=== PATIENT | male | born 1995 | race Caucasian/White ===

== ENCOUNTER 2017-12-17 09:52 | Emergency (ER) | payer MEDICAID ==
--- NOTE | 2017-12-17 10:39 | ER Document Report ---
HPI - HPI Pain Level: 4 Notes: Patient is a 22-year-old male who presents with chief complaint of left thumb pain. Patient reports area of swelling to the left thumb, unknown how this happened. Denies any drainage. Denies any fevers. Past Medical History - General Information source: Patient - Social History Smoking Status: Never Smoker Frequency of alcohol use: None Drug Abuse: None Family History: Reviewed & Not Pertinent - Medical History Medical History: Negative Notes: Hearing impaired Surgical Hx: Negative Vertical Provider Document - CONSTITUTIONAL Notes: PHYSICAL EXAMINATION: GENERAL: Well-appearing, well-nourished and in no acute distress. HEAD: Atraumatic, normocephalic. EYES: Pupils equal round extraocular movements intact, conjunctiva are normal. ENT: Nares patent NECK: Normal range of motion LUNGS: No respiratory distress Musculoskeletal: Normal range of motion NEUROLOGICAL: Normal speech, normal gait. PSYCH: Normal mood, normal affect. SKIN: Warm, Dry, normal turgor, no rashes or lesions noted. Paronychya noted to left thumb. - INFECTION CONTROL TRAVEL OUTSIDE OF THE [place] IN LAST 30 DAYS: No Course - Re-evaluation Re-evalutation: Incision and drainage performed to left thumb, patient tolerated well. Moderate amount of purulent drainage obtained. See procedure note. - Vital Signs Vital signs: Temp Pulse Resp BP Pulse Ox 98.5 F 93 16 162/101 H 98 12/17/17 10:02 12/17/17 10:02 12/17/17 10:02 12/17/17 10:02 12/17/17 10:02 Procedures - Incision and Drainage left thumb Type: Simple Blade size: 11 I&D procedure: Betadine prep applied Incision Method: Incision made by scalpel Discharge - Discharge Clinical Impression: Paronychia Condition: Stable Disposition: HOME, SELF-CARE Additional Instructions: Paronychia You have an infection between the nail and the surrounding skin, called a paronychia. The germs infect the area after a minor skin injury, such as a hangnail. This infection is treated by releasing the pus. This is usually done by the skin from the nail. If the infection has spread underneath the nail, partial removal of the nail may be necessary. Hot-soak the area three or four times daily. Antibiotics are often given, but are not always necessary. Healing takes about a week. If pain or swelling becomes severe or if you develop fever or chills, call the doctor or return for re-examination. Cephalexin The antibiotic you've been prescribed is a member of the cephalosporin class. This type of antibiotic covers a wide variety of infections, including those of the skin, lungs, and urinary tract. It's useful for staph infections. This antibiotic is slightly similar to the penicillin family. In rare cases , a person who is allergic to penicillin will also be allergic to this medication. If you have had a severe allergic reaction to penicillin, and have not taken this antibiotic since that time, notify your doctor. Antibiotics which cover many germs ("broad spectrum" antibiotics) are more likely to cause diarrhea or "yeast" infections. Women prone to vaginal yeast problems may suffer an attack after taking this antibiotic. In infants, oral thrush (white spots "stuck" on the cheek) or yeast diaper rash may result. See your doctor if these problems occur. Call at once if you develop itching, hives , shortness of breath, or lightheadedness. Tetanus Immunization Given You have been given an immunization against tetanus. Please record this in your records. In general, a booster is needed only once every 10 years. The tetanus shot protects against tetanus or "lockjaw," which is a complication of certain wound infections (the tetanus shot cannot protect against the actual infection). The immunization site may become warm and red due to local reaction. If this occurs, apply warm compresses and take aspirin or ibuprofen to reduce inflammation and discomfort. Return for evaluation if the reaction becomes severe. Please take antibiotics as prescribed. Apply warm compresses to the area, this will help draw out any remaining pus. Return to the emergency department if the pain becomes more severe, swelling increases, you develop a fever or red streaking from the area. Prescriptions: Cephalexin [Cephalexin 500 MG Capsule] 1 cap PO QID #28 cap
[2017-12-17] MEDS ORDERED: DIPH/PERTUSS(ACELL)/TETANUS VAC/PF 0.5 ML SYR (>=10YO) IM ONE (11:22)
[2017-12-17 11:57] VITALS: BP 157/98
== END 2017-12-17 11:56 | disposition home or self-care (01) ==
LOC: ER 09:52
PROC: 0H9GXZZ Drainage of Left Hand Skin, External Approach (ICD-10-PCS; principal; 2017-12-17)
DX: L03.012 Cellulitis of left finger (principal); M79.645 Pain in left finger(s); M79.89 Other specified soft tissue disorders
CPT/HCPCS: 90471; 90715; 99283

== ENCOUNTER 2018-02-10 00:20 | Emergency (ER) | payer OTHER, MEDICAID ==
[2018-02-10] MEDS ORDERED: SULFAMETHOXAZOLE/TRIMETHOPRIM 800-160 MG TABLET PO ONE (01:29)
[2018-02-10] MEDS ORDERED: CEPHALEXIN 500 MG CAPSULE PO ONE (01:29)
[2018-02-10] MEDS ORDERED: LIDOCAINE 1% INJ-PF (10 MG/ML) 30 ML SDV INJ ONE (01:29)
[2018-02-10] MEDS ORDERED: HYDROCODONE/ACETAMINOPHEN 5-325 MG (6 TAB/ER DISP) PO PRN (01:30)
--- NOTE | 2018-02-10 01:32 | ER Document Report ---
HPI - HPI Time Seen by Provider: 02/10/18 01:22 Pain Level: 5 Context: Patient is a 22-year-old male that comes to the emergency his significant other chief complaint of an abscess on his right back neck. He states that it has been there for 4 days, his significant other opened it with the tip of a clean razor this morning and a lot of pus drained out. He states the area is still throbbing and painful so he came to be evaluated. He denies fever or chills, nausea or vomiting. He has had an abscess on his hand in the past. He denies diabetes, IV drug abuse, occasional drugs in general, smoking, or any diagnosed medical problems other than deafness and resultant cochlear implant surgery. - CONSTITUTIONAL Constitutional: DENIES: Fever, Chills - REPRODUCTIVE Reproductive: DENIES: : Past Medical History - General Information source: Patient - Social History Smoking Status: Never Smoker Chew tobacco use (# tins/day): No Frequency of alcohol use: None Drug Abuse: None Lives with: Spouse/Significant other Family History: Reviewed & Not Pertinent Patient has suicidal ideation: No Patient has homicidal ideation: No - Medical History Medical History: Negative Renal/ Medical History: Denies: Hx Peritoneal Dialysis Surgical Hx: Negative - Immunizations Immunizations up to date: Yes Hx Diphtheria, Pertussis, Tetanus Vaccination: Yes Vertical Provider Document - CONSTITUTIONAL General Appearance: WD/WN, No Apparent Distress - INFECTION CONTROL TRAVEL OUTSIDE OF THE [place] IN LAST 30 DAYS: No - HEENT HEENT: Atraumatic, Normal ENT Exam, Normocephalic - NECK Neck: Normal Inspection - RESPIRATORY Respiratory: Breath Sounds Normal, No Respiratory Distress - CARDIOVASCULAR Cardiovascular: Regular Rate, Regular Rhythm - GI/ABDOMEN Gastrointestinal: Abdomen Soft, Abdomen Non-Tender - BACK Back: Normal Inspection - MUSCULOSKELETAL/EXTREMETIES Musculoskeletal/Extremeties: MAEW, FROM, Non-Tender - NEURO Level of Consciousness: Awake, Alert, Appropriate - DERM Integumentary: Abscess - There is a fluctuant, indurated abscess over the left posterior lower neck at the top of the shoulder. There is mild surrounding erythema consistent with cellulitis. No nearby lymphadenopathy. Normal range of motion of the neck. Normal examination of the skin otherwise. Course - Re-evaluation Re-evalutation: Abscess was packed. Placed on antibiotics because of surrounding cellulitis. Discussed care, precautions, follow-up. They state understanding and agreement. Procedures - Incision and Drainage Right lower posterior neck Type: Single Anesthetic type: 1% Lidocaine mL's of anesthetic: 6 Blade size: 11 I&D procedure: Shurclens applied, Iodoform packing placed, Sterile dressing applied Incision Method: Incision made by scalpel Amount/type of drainage: Moderate amount of purulent discharge, small amount of blood Discharge - Discharge Clinical Impression: Abscess Cellulitis Qualifiers: Site of cellulitis: unspecified site Qualified Code(s): L03.90 - Cellulitis, unspecified Condition: Stable Disposition: HOME, SELF-CARE Additional Instructions: The abscess has been drained. Take the packing out in 2 days. Keep absorbent dressing over the area, keep clean, clean with soap and water. Take antibiotics as prescribed. Follow-up with primary care. Return if you worsen including spreading redness, fever, or any other concerning symptoms. Prescriptions: Cephalexin Monohydrate [Keflex 500 mg Capsule] 500 mg PO QID #28 capsule Sulfamethoxazole/Trimethoprim [Bactrim Ds Tablet] 1 each PO BID #14 tablet
[2018-02-10 02:33] VITALS: BP 143/87
== END 2018-02-10 02:33 | disposition home or self-care (01) ==
LOC: ER 00:20
PROC: 0H94XZZ Drainage of Neck Skin, External Approach (ICD-10-PCS; principal; 2018-02-10)
DX: L02.11 Cutaneous abscess of neck (principal); L03.221 Cellulitis of neck
CPT/HCPCS: 99283; 10060; A6266; J3490

== ENCOUNTER 2019-07-31 21:25 | Emergency (ER) | payer MEDICAID, OTHER ==
--- NOTE | 2019-07-31 22:44 | ER Document Report ---
ED Medical Screen (RME) - General Chief Complaint: Abdominal Pain Stated Complaint: RIGHT LOWER ABDOMINAL PAIN Time Seen by Provider: 07/31/19 22:43 Notes: HPI: 23-year-old male with girlfriend interpreting via sign language presenting for 2 months of intermittent right sided abdominal pain. 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 Has not had fever nausea vomiting. Denies diarrhea. Denies testicular pain. PHYSICAL EXAMINATION: There is no pain on palpation of the patient's abdomen at this time. exam deferred in triage I have greeted and performed a rapid initial assessment of this patient. A comprehensive ED assessment and evaluation of the patient, analysis of test results and completion of medical decision making process will be conducted by an additional ED providers. TRAVEL OUTSIDE OF THE [place] IN LAST 30 DAYS: No - Related Data Allergies/Adverse Reactions: No Known Allergies Allergy (Unverified 12/17/17 09:55) Past Medical History Renal/ Medical History: Denies: Hx Peritoneal Dialysis - Immunizations Immunizations up to date: Yes Hx Diphtheria, Pertussis, Tetanus Vaccination: Yes Physical Exam - Vital signs Vitals: Temp Pulse Resp BP Pulse Ox 98.6 F 66 16 152/83 H 99 07/31/19 21:34 07/31/19 21:34 07/31/19 21:34 07/31/19 21:34 07/31/19 21:34 Course - Vital Signs Vital signs: Temp Pulse Resp BP Pulse Ox 98.6 F 66 16 152/83 H 99 07/31/19 21:34 07/31/19 21:34 07/31/19 21:34 07/31/19 21:34 07/31/19 21:34
[2019-07-31 23:10] LABS: ABSOLUTE EOSINOPHILS # (AUTO) 0.1 10^3/uL (0.0-0.6); ABSOLUTE LYMPHOCYTES (AUTO) 2.3 10^3/uL (0.5-4.7); ABSOLUTE MONOCYTES (AUTO) 0.4 10^3/uL (0.1-1.4); ABSOLUTE NEUT (AUTO) 2.5 10^3/uL (1.7-8.2); BASOPHILS % (AUTO) 0.9 % (0-2); EOSINOPHILS % (AUTO) 1.8 % (0-6); HEMATOCRIT 42.9 % (37.9-51.0); LYMPHOCYTES % (AUTO) 42.5 % (13-45); MEAN CORPUSCULAR HEMOGLOBIN 31.3 pg (27.0-33.4); MEAN CORPUSCULAR VOLUME 90 fl (80-97); MONOCYTES % (AUTO) 8.1 % (3-13); PLATELET COUNT 240 10^3/uL (150-450); RED CELL DISTRIBUTION WIDTH 13.3 % (11.5-14.0); SEGMENTED NEUTROPHILS % (AUTO) 46.7 % (42-78); TOTAL CELLS COUNTED % (AUTO) 100 %; WHITE BLOOD COUNT 5.5 10^3/uL (4.0-10.5)
[2019-07-31 23:13] LABS: APPEARANCE,URINE SLIGHTLY-CLOUDY; BILIRUBIN,URINE NEGATIVE (NEGATIVE); COLOR,URINE YELLOW; GLUCOSE, URINE NEGATIVE (NEGATIVE); KETONES,URINE NEGATIVE (NEGATIVE); LEUKOCYTE ESTERASE,URINE NEGATIVE (NEGATIVE); NITRITE,URINE NEGATIVE (NEGATIVE); PROTEIN,URINE NEGATIVE (NEGATIVE)
[2019-07-31 23:23] LABS: ALKALINE PHOSPHATASE 52 U/L (38-126); ANION GAP 8 (5-19); ASPARTATE AMINO TRANSFERASE 28 U/L (17-59); BILIRUBIN,TOTAL 0.8 mg/dL (0.2-1.3); BLOOD UREA NITROGEN 21 mg/dL (7-20); CALCIUM 9.9 mg/dL (8.4-10.2); CARBON DIOXIDE 30 mmol/L (22-30); CHLORIDE 100 mmol/L (98-107); GLUCOSE 95 mg/dL (75-110); POTASSIUM 4.5 mmol/L (3.6-5.0); TOTAL PROTEIN 7.9 g/dL (6.3-8.2)
[2019-08-01] MEDS ORDERED: NORMAL SALINE 1000 ML 1,000 ML IV ONE (00:57)
--- NOTE | 2019-08-01 01:03 | ER Document Report ---
ED General - General Chief Complaint: Flank Pain Stated Complaint: RIGHT LOWER ABDOMINAL PAIN Time Seen by Provider: 07/31/19 22:43 Notes: Patient is a 23-year-old male that comes emergency department for chief complaint of 2 months of intermittent pain in the right side of his abdomen mainly. He states that symptoms of pain become severe and he cannot sleep. 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 Patient denies any fall injury, he reports normal bowel movements, he tried taking a stool softener because he thought he was constipated and this worked but his symptoms did not resolve. He denies fever/chills, nausea/vomiting, genital pain, dysuria or discharge. He denies any surgeries or daily medications. He denies smoking, alcohol, recreational drugs. Patient is deaf, uses sign in which and lipreading, girlfriend at bedside. TRAVEL OUTSIDE OF THE [place] IN LAST 30 DAYS: No - Related Data Allergies/Adverse Reactions: No Known Allergies Allergy (Unverified 12/17/17 09:55) Past Medical History - General Information source: Patient - Social History Smoking Status: Current Every Day Smoker Drug Abuse: None Lives with: Spouse/Significant other Family History: Reviewed & Not Pertinent Patient has homicidal ideation: No - Medical History Medical History: Negative Renal/ Medical History: Denies: Hx Peritoneal Dialysis Surgical Hx: Negative - Immunizations Immunizations up to date: Yes Hx Diphtheria, Pertussis, Tetanus Vaccination: Yes Review of Systems - Review of Systems Constitutional: No symptoms reported EENT: No symptoms reported Cardiovascular: No symptoms reported Respiratory: No symptoms reported Gastrointestinal: See HPI Genitourinary: See HPI Male Genitourinary: No symptoms reported Musculoskeletal: No symptoms reported Skin: No symptoms reported Hematologic/Lymphatic: No symptoms reported Neurological/Psychological: No symptoms reported Physical Exam - Vital signs Vitals: Temp Pulse Resp BP Pulse Ox 98.6 F 66 16 152/83 H 99 07/31/19 21:34 07/31/19 21:34 07/31/19 21:34 07/31/19 21:34 07/31/19 21:34 - Notes Notes: GENERAL: Alert, interacts well. No acute distress. HEAD: Normocephalic, atraumatic. EYES: Pupils equal, round, and reactive to light. Extraocular movements intact. ENT: Oral mucosa moist, tongue midline. Oropharynx unremarkable. Airway patent. NECK: Full range of motion. Supple. Trachea midline. No lymphadenopathy. LUNGS: Clear to auscultation bilaterally, no wheezes, rales, or rhonchi. No respiratory distress. Non-tender chest wall. HEART: Regular rate and rhythm. No murmur ABDOMEN: Soft, non-tender. Non-distended. Bowel sounds present in all 4 emma drants. GENITOURINARY: No swelling, tenderness, discharge, erythema, or other abnormality noted. Normal exam. Exam performed with [place] GARCIA at bedside. EXTREMITIES: Moves all 4 extremities spontaneously. No edema, normal radial and dorsalis pedis pulses bilaterally. No cyanosis. BACK: no cervical, thoracic, lumbar midline tenderness. No saddle anesthesia, normal distal neurovascular exam. Moves all extremities in full range of motion. NEUROLOGICAL: Alert and oriented x3. Normal speech. Cranial nerves II through XII grossly intact. Strength 5/5 in all extremities. PSYCH: Normal affect, normal mood. SKIN: Warm, dry, normal turgor. No rashes or lesions noted. Course - Re-evaluation Re-evalutation: Patient's abdomen is nontender on exam, there is no hernia, there is no concerning finding on his genital and groin exams either. Patient cooperative, alert, well-appearing. Based on patient's reported history of suspect this is more musculoskeletal, he does indicate pain along the abdominal musculature and his work equipment does sound painful especially when used for long periods of time. He also states that sometimes the soreness keeps him awake at night. CBC, chemistry unremarkable, urinalysis shows elevated specific gravity, otherwise unremarkable. Very low suspicion of acute abdomen based on patient's timeframe and his evaluation. Patient was given IV fluids. I discussed his details, patient states reassurance and appreciation, discussed treatment options including anti-inflammatories and muscle relaxers (especially at night to help him sleep if needed), discussed follow-up and return precautions. Patient and significant other state appreciation and agreement. Stable and well-appearing at time of discharge. - Vital Signs Vital signs: Temp Pulse Resp BP Pulse Ox 97.8 F 59 L 16 137/71 H 100 08/01/19 01:41 08/01/19 01:41 08/01/19 01:41 08/01/19 01:41 08/01/19 01:41 - Laboratory Result Diagrams: 07/31/19 22:55 07/31/19 22:55 Laboratory results interpreted by me: 07/31/19 07/31/19 22:55 22:55 BUN 21 H Urine Urobilinogen 2.0 H Discharge - Discharge Clinical Impression: Dehydration Abdominal pain Qualifiers: Abdominal location: generalized Qualified Code(s): R10.84 - Generalized abdominal pain Condition: Stable Disposition: HOME, SELF-CARE Additional Instructions: Your tests show dehydration but your exam and tests do not show any concerning findings. Your pain appears to be coming from the abdominal wall, muscles, skin, connective tissue. I recommend the naproxen for pain during the day, drink plenty of fluids, take the muscle relaxer at night if needed especially to help you sleep. Try to improve your equipment and improve padding and this may help reduce your pain. Follow-up with primary care for additional management. Come back for any concerning symptoms including severe worsening pain, swelling of the abdomen, vomiting, fever, or any other concerning symptoms. Prescriptions: Cyclobenzaprine HCl 1 - 2 tab PO Q8H PRN #20 tablet PRN Reason: Naproxen 500 mg PO BID PRN #20 tablet PRN Reason: Forms: Return to Work, Elevated Blood Pressure
[2019-08-01 01:43] VITALS: BP 137/71
== END 2019-08-01 01:45 | disposition home or self-care (01) ==
LOC: ER 21:25
DX: R10.84 Generalized abdominal pain (principal)
CPT/HCPCS: 99284; 96360; 36415; 83690; 85025; 80053; 81001; J7030